=== PATIENT | female | born 1980 | race Caucasian/White ===

== ENCOUNTER 2018-06-15 17:13 | Inpatient (IN) ==
[2018-06-15] MEDS ORDERED: Oxytocin 30 Units/500ml Premix 30 UNITS/500 ML BAG IV.SIG ONE (18:07)
[2018-06-15] MEDS ORDERED: Naloxone Inj 0.4 MG/ML Vial IV.PUSH PRN (18:07)
[2018-06-15] MEDS ORDERED: Sodium Chlor 0.9% Inj 500 ML IV.SIG PRN (18:07)
[2018-06-15] MEDS ORDERED: Sod Chloride 0.9% Inj 1,000 ML IV.CONT PRN (18:07)
[2018-06-15] MEDS ORDERED: fentaNYL Citrate Inj 100 MCG/2 ML Ampul IV.PUSH PRN ×2 (18:07)
--- NOTE | 2018-06-15 18:07 | ED ---
History of Present Illness Primary Care Physician: Carlitos De Leon MD History of Present Illness: 37-year-old 3 para 1011 at 38-6/7 weeks gestation who presents with increasing contractions this afternoon. She reports that she was 1 cm dilated in the office this week and she is now 2-3 cm, 50% effaced and -2 station with intact membranes. Obstetrical history: She receives care with Dr. Rankin. The has been uncomplicated. She was noted on ultrasound 2 weeks ago to have an estimated weight at the 95th percentile. Review of Systems All other systems reviewed negative except as stated in HPI PMFSH - History History Provided By: Patient - Medical / Surgical Hx Neg / Unobtainable Medical Problems Denied: Yes - Surgical History Surgical History: Surgical History (Last Updated 06/15/18 @ 18:01 by Arash Maloney MD) H/O hand surgery History of elective Hx of appendectomy - Social History I have reviewed the patient's Social History: Yes - Tobacco History Second Hand Smoke Exposure: No Smoking Status: Never smoker - Alcohol History How Often Do You Have a Drink Containing Alcohol: Never - Travel History Recent Travel in the [place] Within the Last 8 Weeks: No Recent Travel Out of the Country Within the Last 8 Weeks: No Medications and Allergies Allergies Allergy/AdvReac Type Severity Reaction Status Date / Time tramadol AdvReac Irritabilit Verified 05/28/18 07:17 y/Anxiety Home Medications Medication Instructions Recorded Confirmed Type Prena1 Chew 1 tab PO DAILY 05/28/18 06/15/18 History ferrous sulfate [Iron (ferrous 1 tab PO DAILY 05/28/18 06/15/18 History sulfate)] ranitidine HCl [Zantac Maximum 1 tab PO DAILY 06/15/18 06/15/18 History Strength] Exam Vital signs: Vital Signs 06/15/18 17:26 06/15/18 17:38 Temperature 98.5 F Pulse Rate 88 75 Respiratory Rate 18 Blood Pressure 135/95 H 143/80 H Intake & Output 06/14/18 06/15/18 06/15/18 18:59 06:59 18:59 Weight 108.862 kg Narrative: GENERAL: Well-nourished, well-developed patient. SKIN: Warm and dry. HEAD: Normocephalic and atraumatic. EYES: No scleral icterus. No injection or drainage. ENT: No nasal drainage noted. Mucous membranes pink. Airway patent. NECK: Supple, trachea midline. No JVD. CARDIOVASCULAR: Regular rate and rhythm without murmurs, gallops, or rubs. RESPIRATORY: Breath sounds equal bilaterally. No accessory muscle use. ABDOMEN/GI: Abdomen soft, non-tender, bowel sounds present, no rebound, no guarding Gravid to [-] weeks size Fundal Height: [-41] GENITOURINARY: External Genitalia: intact and normal in appearance BUS glands: [Negative] Cervix: [-] Dilatation: [-2-3 cm] Effacement: [-50%] Station: [--2] Presentation: [Vertex-] Membranes: [intact] Uterine Contractions: [-Every 2-3] FHT's: Category: [1-] Baseline: [-] Reactive: [-] Variability: [-] Decels: [-] EXTREMITIES: No cyanosis or edema. BACK: Nontender without obvious deformity. No CVA tenderness. NEUROLOGICAL: Awake and alert. Motor and sensory grossly within normal limits. Five out of 5 muscle strength in all muscle groups. Normal speech. Assessment and Plan - Plan Assessment: 37-year-old multiparous female at 38 weeks and 6 days gestation in early labor. #2 GBS negative Plan: Admit for labor management. Discharge Plan - Discharge Disposition Patient Disposition: ED Admit(ED Internal Use Only) - Discharge Condition Condition: Good - Physicians Team ED Provider: Arash Maloney Primary Care Provider: Carlitos De Leon Rxs /Orders / Referrals /Forms Prescriptions: No Action ferrous sulfate [Iron (ferrous sulfate)] 325 mg (65 mg iron) Tablet 1 tab PO DAILY Prena1 Chew tablet 1 tab PO DAILY ranitidine HCl [Zantac Maximum Strength] 150 mg Tablet 1 tab PO DAILY - Discharge Instructions Print Language: [place]
[2018-06-15] MEDS ORDERED: Citric Acid/Sodium Citrate Liq 30 ML UDC PO SCH (18:15)
[2018-06-15 18:17] LABS: Baso % (Auto) 0.3 % (0.0-2.0); Eos # (Auto) 0.1 th/mm3 (0.0-0.4); Eos % (Auto) 0.8 % (0.0-4.0); Hematocrit 38.2 % (35.0-46.0); Hemoglobin 12.9 gm/dL (11.6-15.3); Lymph # (Auto) 1.7 th/mm3 (1.0-4.8); Lymph % (Auto) 12.2 % (9.0-44.0); Mean Corpuscular HGB Conc 33.7 % (32.0-36.0); Mean Corpuscular Hemoglobin 30.2 pg (27.0-34.0); Mean Corpuscular Volume 89.8 fL (80.0-100.0); Mean Platelet Volume 7.6 fL (7.0-11.0); Mono # (Auto) 0.8 th/mm3 (0.0-0.9); Mono % (Auto) 5.6 % (0.0-8.0); Neut # (Auto) 11.4 th/mm3 (1.8-7.7); Neut % (Auto) 81.1 % (16.0-70.0); Platelet Count 178 th/mm3 (150-450); Red Blood Count 4.26 mil/mm3 (4.00-5.30); Red Cell Distribution Width 14.1 % (11.6-17.2)
--- NOTE | 2018-06-15 18:18 | P.HPOB ---
Patient Name: Radha Carrasco Date of : 84 Patient Status: Inpatient Attending Provider: Taryn Muniz Date: 06/15/18 17:57 Initialization Date: 06/15/18 17:57 History of Present Illness Primary Care Physician: Carlitos De Leon MD History of Present Illness: 37-year-old 3 para 1011 at 38-6/7 weeks gestation who presents with increasing contractions this afternoon. She reports that she was 1 cm dilated in the office this week and she is now 2-3 cm, 50% effaced and -2 station with intact membranes. Obstetrical history: She receives care with Dr. Rankin. The has been uncomplicated. She was noted on ultrasound 2 weeks ago to have an estimated weight at the 95th percentile. Review of Systems All other systems reviewed negative except as stated in HPI PMFSH - History History Provided By: Patient - Medical / Surgical Hx Neg / Unobtainable Medical Problems Denied: Yes - Surgical History Surgical History: Surgical History (Last Updated 06/15/18 @ 18:01 by Arash Maloney MD) H/O hand surgery History of elective Hx of appendectomy - Social History I have reviewed the patient's Social History: Yes - Tobacco History Second Hand Smoke Exposure: No Smoking Status: Never smoker - Alcohol History How Often Do You Have a Drink Containing Alcohol: Never - Travel History Recent Travel in the [place] Within the Last 8 Weeks: No Recent Travel Out of the Country Within the Last 8 Weeks: No Medications and Allergies Allergies Allergy/AdvReac Type Severity Reaction Status Date / Time tramadol AdvReac Irritabilit Verified 05/28/18 07:17 y/Anxiety Home Medications Medication Instructions Recorded Confirmed Type Prena1 Chew 1 tab PO DAILY 05/28/18 06/15/18 History ferrous sulfate [Iron (ferrous 1 tab PO DAILY 05/28/18 06/15/18 History sulfate)] ranitidine HCl [Zantac Maximum 1 tab PO DAILY 06/15/18 06/15/18 History Strength] Exam Vital signs: Vital Signs 06/15/18 17:26 06/15/18 17:38 Temperature 98.5 F Pulse Rate 88 75 Respiratory Rate 18 Blood Pressure 135/95 H 143/80 H Intake & Output 1206/15/18 06/15/18 18:59 06:59 18:59 Weight 108.862 kg Narrative: GENERAL: Well-nourished, well-developed patient. SKIN: Warm and dry. HEAD: Normocephalic and atraumatic. EYES: No scleral icterus. No injection or drainage. ENT: No nasal drainage noted. Mucous membranes pink. Airway patent. NECK: Supple, trachea midline. No JVD. CARDIOVASCULAR: Regular rate and rhythm without murmurs, gallops, or rubs. RESPIRATORY: Breath sounds equal bilaterally. No accessory muscle use. ABDOMEN/GI: Abdomen soft, non-tender, bowel sounds present, no rebound, no guarding Gravid to [-] weeks size Fundal Height: [-41] GENITOURINARY: External Genitalia: intact and normal in appearance BUS glands: [Negative] Cervix: [-] Dilatation: [-2-3 cm] Effacement: [-50%] Station: [--2] Presentation: [Vertex-] Membranes: [intact] Uterine Contractions: [-Every 2-3] FHT's: Category: [1-] Baseline: [-] Reactive: [-] Variability: [-] Decels: [-] EXTREMITIES: No cyanosis or edema. BACK: Nontender without obvious deformity. No CVA tenderness. NEUROLOGICAL: Awake and alert. Motor and sensory grossly within normal limits. Five out of 5 muscle strength in all muscle groups. Normal speech. Assessment and Plan - Plan Assessment: 37-year-old multiparous female at 38 weeks and 6 days gestation in early labor. #2 GBS negative Plan: Admit for labor management.
[2018-06-15 18:46] LABS: Bacteria,Urine Rare /hpf; Bilirubin,Urine Negative (Negative); Clarity,Urine Hazy (Clear); Color,Urine Yellow (Yellw/Straw); Glucose,Urine (UA) Negative (Negative); Leukocyte Esterase,Urine Negative (Negative); Mucus,Urine Few /lpf (Occasional); Nitrite,Urine Negative (Negative); Specific Gravity,Urine 1.017 (1.002-1.035); Squamous Epithelial Cell,Urine 2 /hpf (0-5)
[2018-06-15] MEDS ORDERED: Lidocaine 1% Inj 50 ML Vial ONE (19:45)
[2018-06-15] MEDS ORDERED: fentaNYL 2MCG-Bupiv 0.125% Epi 150 ML EPIDURAL ONE (19:45)
[2018-06-15] MEDS ORDERED: Bupivacaine PF 0.25% Inj 10 ML Vial ONE (20:05)
[2018-06-15] MEDS ORDERED: fentaNYL Citrate Inj 100 MCG/2 ML Ampul EPIDURAL ONE (20:44)
[2018-06-15] MEDS ORDERED: fentaNYL 2MCG-Bupiv 0.125% Epi 150 ML EPIDURAL PRN (20:44)
[2018-06-16] MEDS ORDERED: Oxytocin 30 Units/500ml Premix 30 UNITS/500 ML BAG IV.CONT PRN ×2 (01:49→05:16)
[2018-06-16] MEDS ORDERED: Naloxone Inj 0.4 MG/ML Vial IV.PUSH PRN (05:16)
[2018-06-16] MEDS ORDERED: Witch Hazel 50%/Glyderin 12.5% 40 Pad Jar RECTAL PRN (05:16)
[2018-06-16] MEDS ORDERED: Bisacodyl 10 MG Supp RECTAL PRN (05:16)
[2018-06-16] MEDS ORDERED: Benzocaine 20% Top Spray 60 ML Can TOPICAL PRN (05:16)
[2018-06-16] MEDS ORDERED: Zolpidem Tartrate 5 MG Tablet PO PRN (05:16)
--- NOTE | 2018-06-16 05:16 | P.OBDELI ---
Weeks Gestation: 39 Patient Started Active Labor: Yes Active Labor Start Date: 06/15/18 Active Labor Start Time: 18:15 Medical Induction of Labor: No Artificial Rupture of Membrane: No Anesthesia: Epidural Episiotomy: midline Vaginal Delivery: Normal Presentation: Occiput anterior Nuchal Cord: None Delayed Cord Clamping (45 sec): Yes Shoulder Dystocia: Kimberley maneuver done Placenta: Spontaneous delivery Laceration: Episiotomy Repair: Chromic interrupted, Vicryl running Estimated blood loss (mL): 300 : Male ( 7/8)
[2018-06-16] MEDS: Acetaminophen 325 MG Tablet PO PRN ×2 (14:51→21:41)
[2018-06-16] MEDS: Prenatal Vit/Ca/Iron/Folic Acid Tablet PO SCH (15:59)
[2018-06-16] MEDS: Senna/Docusate Sodium 8.6/50 MG Tablet PO SCH ×2 (15:59→22:41)
[2018-06-16] MEDS ORDERED: Diphtheria/Tetanus/Pertussis Vaccine Inj 0.5 ML Syringe IM ONE (16:00)
[2018-06-16 21:08] VITALS: RESP 18
[2018-06-17 07:45] VITALS: BP 128/74; PULSE 82; TEMP 96.9
[2018-06-17] MEDS: Prenatal Vit/Ca/Iron/Folic Acid Tablet PO SCH (09:35)
[2018-06-17] MEDS: Senna/Docusate Sodium 8.6/50 MG Tablet PO SCH (09:35)
[2018-06-17] MEDS: Acetaminophen 325 MG Tablet PO PRN (09:35)
--- NOTE | 2018-06-17 10:57 | P.PNOB ---
Subjective Post day: 1 Interval history: doing well, , wants to go home today Objective Vital Signs/I&O: Vital Signs 06/16/18 20:00 06/17/18 07:44 Temperature 98.9 F 96.9 F L Pulse Rate 73 82 Respiratory Rate 18 18 Blood Pressure 147/69 H 128/74 Result Diagrams: 06/15/18 18:00 Objective Remarks: GENERAL: Well-nourished, well-developed patient. CARDIOVASCULAR: Regular rate and rhythm without murmurs, gallops, or rubs. RESPIRATORY: Breath sounds equal bilaterally. No accessory muscle use. ABDOMEN/GI: Abdomen soft, non-tender. Fundus: Firm, non-tender at umbilicus. GENITOURINARY: Light to moderate bleeding. EXTREMITIES: No cyanosis or edema, non-tender, without signs of DVT. Medications and IVs: Active Medications Acetaminophen (Tylenol) 650 mg PO Q4H PRN PRN Reason: PAIN SCALE 1 TO 2 Last Admin: 06/17/18 09:35 Dose: 650 mg Al Hydroxide/Mg Hydroxide (Milk Of Magnesia Liq) 30 ml PO Q12H PRN PRN Reason: Mild Constipation Benzocaine (Americaine 20% Top [place]) 1 spray TOPICAL Q4H PRN PRN Reason: For Perineum Discomfort Last Admin: 06/16/18 21:40 Dose: 1 spray Bisacodyl (Dulcolax Supp) 10 mg RECTAL DAILY PRN PRN Reason: SEVERE CONSITIPATION Calcium Carbonate (Tums Chew) 1,000 mg PO Q4H PRN PRN Reason: HEARTBURN Last Admin: 06/16/18 03:50 Dose: 1,000 mg Citric Acid/Sodium Citrate (Sodium Citrate/Citric Acid Liq) 30 ml PO [employer] [facility] Stop: 06/19/18 18:14 Last Admin: 06/16/18 01:48 Dose: 30 ml Fentanyl Citrate (Fentanyl Inj) 50 mcg IV.PUSH Q1H PRN PRN Reason: Pain Scale 3 - 5 Fentanyl Citrate (Fentanyl Inj) 100 mcg IV.PUSH Q1H PRN PRN Reason: PAIN SCALE 6 TO 10 Lactated Ringer's (Lr 1000 Ml Inj) 1,000 mls @ 3,000 mls/hr IV.SIG UNSCH PRN PRN Reason: compromise or epidural Lactated Ringer's (Lr 1000 Ml Inj) 1,000 mls @ 125 mls/hr IV.CONT .Q8H [place] Last Admin: 06/17/18 10:27 Dose: Not Given Sodium Chloride (Ns Inj) 500 mls @ 1,000 mls/hr IV.SIG UNSCH PRN PRN Reason: SEE LABEL COMMENTS Sodium Chloride (Ns Inj) 1,000 mls @ 100 mls/hr IV.CONT .Q10H PRN PRN Reason: SEE LABEL COMMENTS Fentanyl/Bupivacaine/Sodium Chlor (Fentanyl 2 Mcg-Bupiv 0.125% Epi) 150 mls @ 12 mls/hr EPIDURAL PRN PRN PRN Reason: for Labor Pain Last Admin: 06/15/18 22:15 Dose: 12 mls/hr Oxytocin (Pitocin 30 Units/Ns 500 Ml Premix) 30 units in 500 mls @ 2 mls/hr IV.CONT TITRATE PRN; Protocol PRN Reason: For induction of labor Last Admin: 06/16/18 01:59 Dose: 2 milliunit/min, 2 mls/hr Oxytocin (Pitocin 30 Units/Ns 500 Ml Premix) 30 units in 500 mls @ 100 mls/hr IV.CONT UNSCH PRN PRN Reason: Heavy bleeding Ibuprofen (Motrin) 800 mg PO Q8H PRN PRN Reason: For Cramping Last Admin: 06/17/18 09:36 Dose: 800 mg Lactulose (Lactulose Liq) 30 ml PO DAILY PRN PRN Reason: SEVERE CONSITIPATION Lidocaine HCl (Xylocaine 1% Inj) 10 ml INFILTRATN PRN PRN PRN Reason: For episiotomy repair Stop: 06/17/18 18:06 Lidocaine HCl (Xylocaine 1% Inj) 0.1 ml I-DERMAL PRN PRN PRN Reason: For IV start Stop: 06/18/18 18:06 Mineral Oil (Muri-Lube Oil) 10 ml TOPICAL PRN PRN PRN Reason: PRN perineal massage Naloxone HCl (Narcan Inj) 0.1 mg IV.PUSH Q2M PRN PRN Reason: for opiate reversal Naloxone HCl (Narcan Inj) 0.1 mg IV.PUSH Q2M PRN PRN Reason: for opiate reversal Ondansetron HCl (Zofran Odt) 4 mg PO Q6H PRN PRN Reason: NAUSEA OR VOMITING Vit/Calcium/Iron/Folic Ac (Stuartnatal Plus 3) 1 tab PO DAILY [facility] Last Admin: 06/17/18 09:35 Dose: 1 tab Senna/Docusate Sodium (Delilah-Colace) 1 tab PO BID [facility] Last Admin: 06/17/18 09:35 Dose: 1 tab Sennosides (Senokot) 17.2 mg PO Q12H PRN PRN Reason: Moderate Constipation Sodium Chloride (Ns Flush) 2 ml IV.FLUSH BID [facility] Last Admin: 06/17/18 09:14 Dose: Not Given Sodium Chloride (Ns Flush) 2 ml IV.FLUSH PRN PRN PRN Reason: FLUSH AFTER USING IV ACCESS Witch Kimberlee/Glycerin (Tucks Pads) 1 applicatio RECTAL QID PRN PRN Reason: HEMORRHOIDS Last Admin: 06/16/18 21:41 Dose: 1 applicatio Zolpidem Tartrate (Ambien) 5 mg PO HS PRN PRN Reason: SLEEP Assessment and Plan - Diagnosis (1) Vaginal delivery Code(s): O80 - Encounter for full-term uncomplicated delivery Status: Acute - Plan s/p PPD #1 doing well routine PP care discharge planning Discharge Planning: routine - Attending Attestation pt seen by me
== END 2018-06-17 14:24 | disposition home or self-care (01) | DRG 807 ==
LOC: HOBED 17:13 → H2E 18:10 → H1EA 06-16 09:31
PROVIDERS: ADMIT Obstetrics & Gynecology; ATTEND Obstetrics & Gynecology
CPT/HCPCS: 59025; 81001; 85025; 86900; 86901; 99285; J2590; J7120